=== PATIENT | female | born 1975 | race Caucasian/White ===

== ENCOUNTER 2020-08-06 19:26 | Emergency (ER) | payer OTHER ==
[~2020-08-06 19:26] MED LIST: COLACE 100MG C100 MG PO; FEOSOL325 MG PO; IBUPROFEN600 MG PO; LOPRESSOR 25 MG25 MG PO; NORCO 5-325 TA1 EACH PO; PHENERGAN 12.12.5 M1 PO; PROVERA10 MG PO
[2020-08-06 20:18] LABS: HEMOGLOBIN 16.5 gm/dl (12.3-15.3); RED BLOOD COUNT 5.34 M/UL (4.00-5.10)
[2020-08-06 20:30] LABS: BUN/CREATININE RATIO 15 (0-10)
== END 2020-08-06 21:50 | disposition home or self-care (01) ==
LOC: ER1 19:26
PROVIDERS: Preventive Medicine Occupational Medicine
DX: I47.1 Supraventricular tachycardia (principal)
CPT/HCPCS: 36415; 71045; 80048; 82550; 82553; 83874; 84484; 85025; 93005; 96374; 99285; J0153; J2060

== ENCOUNTER 2020-09-15 06:36 | Emergency (ER) | payer OTHER ==
[2020-09-15 08:35] LABS: HEMOGLOBIN 13.2 gm/dl (12.3-15.3); RED BLOOD COUNT 4.46 M/UL (4.00-5.10); WHITE BLOOD COUNT 6.5 K/UL (4.5-11.0)
[2020-09-15 09:08] LABS: BUN/CREATININE RATIO 16 (0-10)
[2020-09-15] MEDS ORDERED: ASPIRIN CHEWABL81 MG PO (09:12)
== END 2020-09-15 09:30 | disposition home or self-care (01) ==
LOC: ER1 06:36
PROVIDERS: Emergency Medicine
DX: I47.1 Supraventricular tachycardia (principal)
CPT/HCPCS: 71045; 80053; 82550; 82553; 83874; 84439; 84443; 84484; 85025; 85379; 85610; 85730; 93005; 99285

== ENCOUNTER → 2020-09-23 | Outpatient (CLI) | payer OTHER ==
[~2020-09-23] MED LIST changes: +ASPIRIN CHEWABL81 MG PO
[2020-09-23 13:12] LABS: HEMOGLOBIN 15.3 gm/dl (12.3-15.3); RED BLOOD COUNT 5.08 M/UL (4.00-5.10)
[2020-09-23 13:37] LABS: BUN/CREATININE RATIO 24 (0-10)
== END ==
LOC: LAB 12:11
PROVIDERS: Internal Medicine Cardiovascular Disease
DX: I47.1 Supraventricular tachycardia (principal); R00.2 Palpitations; R06.02 Shortness of breath
CPT/HCPCS: 80048; 85025

== ENCOUNTER 2020-09-25 08:56 | Outpatient (CLI) | payer OTHER ==
[~2020-09-25] VITALS: Ht 162.6 cm; Wt 56.7 kg
== END 2020-09-26 11:04 | disposition home or self-care (01) ==
LOC: CATH 08:56 → PROG CARE 13:43 → CATH 09-26 11:04
DX: I47.1 Supraventricular tachycardia (principal); Z87.891 Personal history of nicotine dependence; Z79.82 Long term (current) use of aspirin; Z82.49 Family history of ischemic heart disease and other diseases of the circulatory system; Z79.899 Other long term (current) drug therapy
CPT/HCPCS: 93005; 93613; 93621; 93623; 99152; 99153; C1730; C1733; C1766; J1644; J2250; J3010; J7040; J7050